=== PATIENT | female | born 1990 | race Hispanic/Latino ===

== ENCOUNTER 2017-10-23 09:46 | Emergency (ER) | payer OTHER ==
[2017-10-23 10:11] VITALS: TEMP 97; O2SAT 98
[2017-10-23] MEDS ORDERED: DiphenhydrAMINE 50 mg/ml Inj IM STA (10:39)
--- NOTE | 2017-10-23 10:43 | ED PDOC ---
HPI: Eye Injury/Pain Time Seen by Provider: 10/23/17 10:18 Chief Complaint (Nursing): Eye Problem Chief Complaint (Provider): Bilateral Eye Redness and Swelling History Per: Patient History/Exam Limitations: no limitations Onset/Duration Of Symptoms: Persistent (x3 weeks) Current Symptoms Are (Timing): Still Present Additional Complaint(s): Carmen Lepe is a 27 year old female that presents to the ED with a chief complaint of redness and swelling to bilateral periorbital area that she has been experiencing for the past three weeks. She reports that when it first began 3 weeks ago, it resolved within 5 days. However her symptoms began once again 2 days ago, after which she went to the clinic and was given a steroid injection and told to take Loratadine, but has had no improvement. Patient denies any fever, visual field decrease, discharge, or eye pain. She denies any exposure to new foods, medications, soaps, or lotions. Past Medical History Reviewed: Historical Data, Nursing Documentation, Vital Signs Vital Signs: Last Vital Signs Temp 97 F L 10/23/17 10:05 Pulse 84 10/23/17 10:05 Resp 19 10/23/17 10:05 BP 152/107 H 10/23/17 10:05 Pulse Ox 98 10/23/17 10:05 - Medical History PMH: No Chronic Diseases - Family History Family History: States: Unknown Family Hx - Home Medications Home Medications: Ambulatory Orders Medication Instructions Recorded DiphenhydrAMINE [Benadryl] 50 mg PO TID #20 cap 10/23/17 Enalapril Maleate [Vasotec] 5 mg PO DAILY #30 tab 10/23/17 Famotidine [Pepcid] 40 mg PO DAILY #20 tablet 10/23/17 predniSONE [predniSONE Tab] 40 mg PO DAILY #8 tab 10/23/17 - Allergies Allergies/Adverse Reactions: Allergies Allergy/AdvReac Type Severity Reaction Status Date / Time No Known Allergies Allergy Verified 10/23/17 10:05 Review of Systems Constitutional: Negative for: Fever Eyes: Positive for: Eyelid Inflammation (b/l), Redness (b/l). Negative for: Pain, Vision Change, Conjunctivae Inflammation Physical Exam - Reviewed Nursing Documentation Reviewed: Yes Vital Signs Reviewed: Yes - Physical Exam Appears: Positive for: Non-toxic, No Acute Distress Head Exam: Positive for: ATRAUMATIC, NORMOCEPHALIC Skin: Positive for: Normal Color, Warm Eye Exam: Positive for: EOMI, PERRL, Periorbital swelling (b/l), Other (b/l periorbital erythema). Negative for: Conjunctival injection (normla conjuctiva) ENT: Positive for: Normal ENT Inspection, TM Is/Are (normal). Negative for: Sinus Pain/Drainage, Nasal Congestion, Pharyngeal Erythema, Tonsillar Exudate, Tonsillar Swelling Neck: Positive for: Normal, Supple Cardiovascular/Chest: Positive for: Regular Rate, Rhythm. Negative for: Murmur Respiratory: Positive for: Normal Breath Sounds. Negative for: Wheezing Neurologic/Psych: Positive for: Alert, Oriented. Negative for: Motor/Sensory Deficits - Laboratory Results Result Diagrams: 10/23/17 11:20 10/23/17 11:20 - ECG O2 Sat by Pulse Oximetry: 98 (RA) Pulse Ox Interpretation: Normal Medical Decision Making Medical Decision Making: Impression: Periorbital redness and swelling b/l Plan: * EKG * Benadryl 50 mg IM * Vasotec 5 mg PO * Pepcid 40 mg PO * Prednisone 40 mg PO * Reevaluation Of Note: patient's BP noted to be elevated at 163/117, which on further questioning patient states that she has had elevated BP in the past when in doctors offices, but has never been put on medication. She reports strong family history of HTN and exercises regularly, but denies any headache, dizziness, chest pain, or SOB. Labs reviewed and are wnl. Patient given enalapril 5 mg PO. EKG : NSR at 68 bpm, no acute ST changes, as read by [facility]. On re-evaluation, patient reports no headache, dizziness, CP or SOB. Has no additional complaints at this time. BP 148/97. Diagnostic results d/w the patient in great detail. Diagnosis of allergic reaction and HTN d/w the patient. Based on history, exam and diagnostic results, plan will be for outpatient follow up. Patient instructed to follow-up with pmd or referral provided in 1-2 days without fail. Advised to take medication as prescribed. Return to the emergency room at any time for any new or worsening symptoms. Patient states she fully agrees with and understands discharge instructions. States that she agrees with the plan and disposition. Verbalized and repeated discharge instructions and plan. I have given the patient opportunity to ask any additional questions. Scribe Attestation: Documented by Dalia Hurtado, acting as a scribe for Valencia Queen PA-C. Provider Scribe Attestation: All medical record entries made by the Scribe were at my direction and personally dictated by me. I have reviewed the chart and agree that the record accurately reflects my personal performance of the history, physical exam, medical decision making, and the department course for this patient. I have also personally directed, reviewed, and agree with the discharge instructions and disposition. Disposition - Clinical Impression Clinical Impression: Allergic reaction, Hypertension - Patient ED Disposition Is Patient to be Admitted: No Counseled Patient/Family Regarding: Diagnosis, Need For Followup, Rx Given - Disposition Referrals: FAMILY PROVIDER,RADHA [Primary Care Provider] - Yonas Barragan MD [Staff Provider] - Baylee Gaviria MD [Staff Provider] - Disposition: Routine/Home Disposition Time: 10:40 Condition: STABLE Additional Instructions: Thank you for letting us take care of you today. You were treated for allergic reaction. The emergency medical care you received today was directed at your acute symptoms. If you were prescribed any medication, please fill it and take as directed. It may take several days for your symptoms to resolve. Return to the Emergency Department if your symptoms worsen, do not improve, or if you have any other problems. Please contact your doctor in 2 days for re-evaluation and follow up / or call one of the physicians/clinics you have been referred to that are listed on the Patient Visit Information form that is included in your discharge packet. Bring any paperwork you were given at discharge with you along with any medications you are taking to your follow up visit. Our treatment cannot replace ongoing medical care by a primary care provider (PCP) outside of the emergency department. Thank you for allowing the [facility] team to be part of your care today. Prescriptions: DiphenhydrAMINE [Benadryl] 50 mg PO TID #20 cap Enalapril Maleate [Vasotec] 5 mg PO DAILY #30 tab Famotidine [Pepcid] 40 mg PO DAILY #20 tablet predniSONE [predniSONE Tab] 40 mg PO DAILY #8 tab Instructions: Hypertension (ED), General Allergic Reaction (ED) Forms: [facility] (Liberian), [facility] School/Work Excuse Print Language: GREENLANDIC - PA / FIELD ADJUSTER / Resident Statement MD/DO has reviewed & agrees with the documentation as recorded.
[2017-10-23 11:07] VITALS: PULSE 71; RESP 20
[2017-10-23 11:42] LABS: BASO # 0.1 K/uL (0.0-0.2); BASO % 0.7 % (0.0-2.0); EOS # 0.2 K/uL (0.0-0.7); EOS % 2.5 % (0.0-4.0); HEMOGLOBIN 13.9 g/dL (12.0-16.0); MEAN CELL VOLUME 93.3 fl (81.0-99.0); MEAN CORPUSCULAR HGB CONC 33.3 g/dL (33.0-37.0); MEAN PLATELET VOLUME 10.1 fl (7.2-11.7); MONO # 0.6 K/uL (0.0-0.8); MONO % 6.2 % (0.0-10.0); NEUT # 5.2 K/uL (1.8-7.0); NEUT % 57.6 % (50.0-75.0); RBC 4.49 Mil/uL (3.80-5.20); WHITE BLOOD COUNT 9.1 K/uL (4.8-10.8)
[2017-10-23 11:50] LABS: ALB/GLOB RATIO 1.4 (1.0-2.1); ALBUMIN 4.1 g/dL (3.5-5.0); ALT/SGPT 25 U/L (9-52); AST/SGOT 25 U/L (14-36); BLOOD UREA NITROGEN 3 mg/dl (7-17); GFR AFRICAN-AMERICAN > 60; GFR NON-AFRICAN AMERICAN > 60
[2017-10-23 13:06] VITALS: BP 148/97
--- NOTE | 2017-10-24 12:51 | CARD ---
APPROVED REPORT EKG Measurement Heart [id number] <Conclusion> Normal sinus rhythm with sinus arrhythmia Possible Left atrial enlargement Rightward axis Borderline ECG
== END 2017-10-23 13:38 | disposition home or self-care (01) ==
LOC: H.ER 09:46 → SUPCPDRO 09:46 → H.ER 13:38
DX: H57.9 Unspecified disorder of eye and adnexa (principal); I10 Essential (primary) hypertension; Z82.49 Family history of ischemic heart disease and other diseases of the circulatory system
CPT/HCPCS: 80053; 81025; 85025; 93005; 96372; 99283; J1200